=== PATIENT | female | born 1970 | race African-American/Black ===

== ENCOUNTER 2024-08-23 22:53 | Observation (INO) ==
[2024-08-23] MEDS: NITROGLYCERIN 0.4 MG TAB.SUBL SL ONE ×2 (23:31→23:36)
[2024-08-23 23:37] LABS: Basophils%(Percent) Auto 0.5 (0.1-0.85); Eosinophils#(Absolute)Auto 0.2 (0.0-0.2); Eosinophils%(Percent) Auto 2.4 % (0.4-2.8); Granulocytes % - Auto 65.6 % (47.8-71.3); Granulocytes#(Absolute)- Auto 5.7 (2.3-6.0); Hematocrit 36.5 % (35.9-46.7); Mean Corpuscular Volume 93.5 fl (81.0-93.7); Monocytes #(Absolute)- Auto 0.8 (1.1-3.1); Monocytes %(Percent)- Auto 9.2 % (3.6-9.8); Platelet Count 234 K/uL (152-353); White Blood Count 8.8 K/uL (4.3-9.3)
[2024-08-24 00:30] LABS: Potassium 3.8 mmol/L (3.6-5.2)
[2024-08-24] MEDS ORDERED: ONDANSETRON HCL/PF 4 MG/2 ML VIAL INJ PRN (01:19)
[2024-08-24] MEDS ORDERED: MAGNESIUM, ALUMINUM HYDROXIDE 30 ML ORAL.SUSP PO PRN (01:19)
[2024-08-24] MEDS ORDERED: MAGNESIUM HYDROXIDE 400 MG/5 ML ORAL.SUSP PO PRN (01:19)
[2024-08-24] MEDS ORDERED: ACETAMINOPHEN 500 MG TABLET PO PRN (01:19)
[2024-08-24] MEDS ORDERED: DOCUSATE SODIUM 100 MG CAPSULE PO PRN (01:19)
--- NOTE | 2024-08-24 01:28 | Emergency Department Note ---
HPI - Chest Pain General Chief Complaint: Chest Pain Stated Complaint: CHEST PAIN Time Seen by Provider: 08/23/24 23:47 Source: patient and EMS Mode of arrival: ambulance Limitations: no limitations History of Present Illness HPI narrative: 54-year-old Afro-[place]ese female presents to the ED alert and oriented x 4, nontoxic-appearing, in moderate severe painful distress. Patient arrives via EMS with a chief complaint of acute onset of left anterior/sternal chest pain that radiates into her shoulder and left arm. Patient further states she slotted for cardiac cath on as she had a previous blockage that will now require stent placement. Patient currently denies any acute shortness of breath, respiratory distress, or increased work of breathing. Patient localized the pain to the left anterior breast area, described as sharp, stabbing in nature with nothing improving the pain or relieving it. The pain does radiate into the left shoulder girdle and down into the left arm. Patient placed immediately on the relief master, and was administered ASA by EMS enroute. MD complaint: Reports chest pain, chest heaviness and chest discomfort Pertinent past history: Reports coronary artery disease Prior episodes: Yes Onset: Reports during exertion Pain location: Reports substernal and left chest Pain radiation: Reports left arm and left shoulder Severity: moderate Related Data On Oral Contraceptives: No Allergies Allergy/AdvReac Type Severity Reaction Status Date / Time lisinopril Allergy Verified 08/23/24 23:33 Review of Systems Status of ROS 10 or more systems reviewed and unremark able except as noted in history and below Cardiovascular Reports: chest pain Exam Exam: 54 yo AA female well developed, a/ox4, n on toxic appearing in moderate to severe painful distress. Patient is currently clutching her sternal area stating she is experiencing a sudden onset of acute chest pain. Constitutional: alert Vital Signs - 24 hr 08/23/24 23:00 08/23/24 23:31 08/23/24 23:36 Temperature 98.4 F Pulse Rate 88 Respiratory Rate 28 H Blood Pressure 179/106 160/101 179/106 Pulse Oximetry 99 Oxygen Delivery Me thod Nasal Cannula 08/23/24 23:41 08/23/24 23:43 08/23/24 23:45 Temperature Pulse Rate Respiratory Rate Blood Pressure 150/95 136/87 Pulse Oximetry 100 Oxygen Delivery Me thod Room Air 08/24/24 00:00 08/24/24 00:51 Temperature 98.4 F 98.4 F Pulse Rate 90 84 Respiratory Rate 16 16 Blood Pressure 136/87 130/84 Pulse Oximetry 100 100 Oxygen Delivery Me thod Room Air Room Air HENMT: normocephalic, head/scalp atraumatic and hearing grossly normal bilaterally Eyes: PERRL and EOMs intact bilaterally Neck/C-Spine: visual inspection normal Lymph: no lymphadenopathy noted Chest: inspection of chest normal Respiratory: breath sounds equal bilaterally, normal respiratory effort, clear to auscultation bilaterally, no wheezes, no rales and no retractions Cardiovascular: normal heart rate noted, regular rhythm noted, no gallop, no rub, no murmur, no JVD and no additional abnormal heart sounds Gastrointestinal: abdomen normal to inspection and abdomen soft to palpation Genitourinary: no CVA tenderness Back/Pelvis: spine normal to inspection Extremities: normal to inspection Neurology: no movement abnormality noted Psychiatry: Mental Status Exam documented in the separate MSE mental status grossly normal Feel stressed/tense/nervous/anxious/difficulty sleeping: not at all Due to disability, difficulty making decisions: No Skin: skin color normal Course Course Hospital Course: Full cardiac workup to include EKG, labs, IV, telemonitoring, repeat CE, SubLin Nitro Reevaluation(s) Reevaluation #1: Patient states patient is competely gone after the third nitro dose Time: 23:00 Reevaluation #2: I have discussed my desire to admit the patient to the hosptial for obs and repe at cardiac enzymes. Time: 00:30 Vital Signs Vital signs: Vital Signs Temperature 98.4 F 08/23/24 23:00 Pulse Rate 88 08/23/24 23:00 Respiratory Rate 28 H 08/23/24 23:00 Blood Pressure 179/106 08/23/24 23:00 Pulse Oximetry 99 08/23/24 23:00 Oxygen Delivery Method Nasal Cannula 08/23/24 23:00 Temperature 98.4 F 08/24/24 00:51 Pulse Rate 84 08/24/24 00:51 Respiratory Rate 16 08/24/24 00:51 Blood Pressure 130/84 08/24/24 00:51 Pulse Oximetry 100 08/24/24 00:51 Oxygen Delivery Method Room Air 08/24/24 00:51 MDM - Chest Pain MDM Narrative Medical decision making narrative: History physical and laboratory exams are consistent with acute chest wall pain, however due to the patient's cardiac nature and insurance she is slotted for cardiac cath on would like to admit the patient for rule out cardiac enzymes and further telemonitoring.Patient's cardiac workup is largely benign at this time, nitro has eliminated patient's chest wall pain while maintaining normal vital signs Differential Diagnosis Differential diagnosis: Likely stable angina, unstable angina pectoris, atypical chest pain, st elevation myocardial infarction and other (PE, NSTEMI) Medical Records Data Attestation: I reviewed the patient's medical records. Lab Data Attestation: I reviewed the patient's lab results. Labs: Lab Results 08/23/24 Range/Units 23:25 WBC 8.8 (4.3-9.3) K/uL RBC 3.9 L (4.00-5.50) M/uL Hgb 12.2 L (12.5-15.8) gm/dL Hct 36.5 (35.9-46.7) % MCV 93.5 (81.0-93.7) fl MCH 31.2 (27.6-32.2) pg MCHC 33.3 (33.1-35.3) g/dl RDW 13.7 (11.4-14.2) % Plt Count 234 (152-353) K/uL MPV 7.2 (6.9-10.8) fl Gran % 65.6 (47.8-71.3) % Lymph % (Auto) 22.3 (20.0-43.0) % [place] % (Auto) 9.2 (3.6-9.8) % Eos % (Auto) 2.4 (0.4-2.8) % Baso % (Auto) 0.5 (0.1-0.85) Lymph # (Auto) 2.0 (1.1-3.1) [place] # (Auto) 0.8 L (1.1-3.1) Eos # (Auto) 0.2 (0.0-0.2) Baso # (Auto) 0.0 (0.0-0.1) Absolute Gran (auto) 5.7 (2.3-6.0) Sodium 139 (136-145) mmol/L Potassium 3.8 (3.6-5.2) mmol/L Chloride 105.0 (98-107) mmol/L Carbon Dioxide 28 (21-32) mmol/L Anion Gap 6.0 (4-14) mEq/L BUN 25 H (7-18) mg/dL Creatinine 1.6 H (0.6-1.3) mg/dL Estimated GFR 38.1 (>59.9) Glucose 155 H (70-110) mg/dL Calcium 9.1 (8.5-10.1) mg/dL Total Bilirubin 0.50 (0.0-1.0) mg/dL AST 20 (15-37) U/L ALT 32 (30-65) U/L Alkaline Phosphatase 106 (50-136) U/L Troponin I High Sens 7.00 (4.0-60.4) ng/L Total Protein 6.7 (6.4-8.2) g/dL Albumin 2.9 L (3.4-5.0) g/dL Imaging Data Imaging ordered: Chest x-ray Attestation: I personally reviewed and interpreted this imaging study as follows: My impression: No acute findings present ECG Data Attestation: I personally reviewed and interpreted this ECG as follows: ECG interpretation date: 08/23/24 ECG interpretation time: 23:10 Prior ECG tracings: not available for review Interpretation: Sinus rhythm normal normal P axis ventricular rate of 69 at atrial premature complexes SB complex with short RR interval left ventricular ventricular hypertrophy multiple verbal speech criteria Rate 76 RR 792 CA 152 QRSD 84 QT 388 Core Measures AMI core measures followed: Yes Critical Care Time Critical Care Time Total Critical Care Time: 90 Discharge Plan Discharge Patient Disposition: Admitted As Observation Clinical Impression: Atypical chest pain Time of Disposition: 01:27 [facility] Medical History FHx: cholecystectomy Hypertension Diabetes Chronic back pain History of COVID-19 Pulmonary embolism Social History Smoking status: never smoker Within the past year, how often did you have a drink containing alcohol: monthly or less Non-prescribed substance use: cannabis (any form) Non-prescribed substance use details: Pt admits to occassional use of Marijuana What is your current living situation: I presently have a place to live Problems where you live: no known problems Feel stressed/tense/nervous/anxious/difficulty sleeping: not at all Due to disability, difficulty making decisions: No
[2024-08-24 07:58] VITALS: RESP 19
[2024-08-24] MEDS: HYDROCODONE/ACETAMINOPHEN 7.5/325MG TABLET PO PRN (08:14)
[2024-08-24] MEDS: ASPIRIN 325 MG TABLET PO SCH (09:25)
[2024-08-24] MEDS: ENOXAPARIN SODIUM 40 MG/0.4 ML SYRINGE SUBQ SCH (09:26)
[2024-08-24] MEDS: 0.9 % SODIUM CHLORIDE 1000 ML 1,000 ML IV SCH (09:26)
[2024-08-24] MEDS: LABETALOL HCL 100 MG TABLET PO SCH (09:26)
[2024-08-24] MEDS: PANTOPRAZOLE SODIUM 40 MG TABLET.DR PO SCH (09:26)
[2024-08-24] MEDS: FAMOTIDINE 20 MG TABLET PO SCH (09:26)
[2024-08-24] MEDS: 0.9 % SODIUM CHLORIDE 500 ML IV ONE ×2 (09:42→09:43)
[2024-08-24] MEDS ORDERED: 0.9 % SODIUM CHLORIDE 1000 ML 1,000 ML IV SCH (10:00)
[2024-08-24] MEDS: AMLODIPINE BESYLATE 5 MG TABLET PO SCH (12:01)
[2024-08-24] MEDS: APIXABAN 2.5 MG TABLET PO SCH (12:01)
[2024-08-24] MEDS: ATORVASTATIN CALCIUM 40 MG TABLET PO SCH (12:01)
--- NOTE | 2024-08-24 15:22 | Short Stay Summary ---
H&P: HPI History of Present Illness Chief complaint: CHEST PAIN Narrative: 54-year-old Afro-[place] female presents to the ED alert and oriented x 4, nontoxic-appearing, in moderate severe painful distress. Patient arrives via EMS with a chief complaint of acute onset of left anterior/sternal chest pain that radiates into her shoulder and left arm. Patient further states she slotted for cardiac cath on 08/28/2024 Dr Catherine as she had a previous blockage that will now require stent placement. Patient currently denies any acute shortness of breath, respiratory distress, or increased work of breathing. Patient localized the pain to the left anterior breast area, described as sharp, stabbing in nature with nothing improving the pain or relieving it. The pain does radiate into the left shoulder girdle and down into the left arm. Patient placed immediately on the inside parts sales, and was administered ASA by EMS in route. Patient was given nitro x 2 in the ER and that resolved the chest pain without any reoccurrence noted per the patient. Review of Systems Status of ROS 10 or more systems reviewed and unremark able except as noted in history and below Constitutional Reports: malaise; Denies: fever, chills, change in weight, fatigue or change in sleep pattern Eyes Denies: change in vision, blurry vision, blind spots or light sensitivity Ears, nose, mouth, and throat Denies: throat pain, neck pain, throat swelling, difficulty swallowing or hoarseness Cardiovascular Reports: chest pain and swelling of feet/ankles; Denies: palpitations, edema, shortness of breath with exertion or shortness of breath when lying down Respiratory Denies: shortness of breath, cough, wheezing, stridor or pain on inspiration Gastrointestinal Reports: feeling full early; Denies: abdominal pain, nausea, vomiting, coffee grounds in vomit, heartburn, diarrhea, constipation or difficulty swallowing Genitourinary Denies: painful urination, urinary frequency, urinary urgency, urinary incontinence, blood in urine or difficulty voiding Musculoskeletal Reports: back pain (chronic); Denies: neck pain, extremity pain, extremity swelling, joint pain or limited range of motion Integumentary/Breast Denies: rash, itching, redness, skin pain, skin tenderness, skin swelling, sores or new lesion Neurological Denies: headache, numbness in extremities, weakness in extremities, lack of coordination or dizziness Psychiatric Denies: anxiety, mood swings, panic attacks, change in sleep pattern, hopelessness or loss of interest Endocrine Denies: excessive urination, excessive thirst, fatigue, cold intolerance or excessive sweating Hematologic/Lymphatic Denies: easy bruising, easy bleeding or enlarged lymph nodes Allergic/Immunologic Denies: hives, throat swelling, tongue swelling, facial swelling, wheezing, itchy eyes or seasonal allergies PFSH PFSH Medical History (Updated 08/24/24 @ 15:48 by Leila Jackson DO) Presence of stent in coronary artery in patient with coronary artery disease Morbid obesity GERD with esophagitis FHx: cholecystectomy Hypertension Diabetes Chronic back pain History of COVID-19 Pulmonary embolism Social History Smoking status: never smoker Within the past year, how often did you have a drink containing alcohol: monthly or less Non-prescribed substance use: cannabis (any form) Non-prescribed substance use details: Pt admits to occassional use of Marijuana What is your current living situation: I presently have a place to live Problems where you live: no known problems Highest level of school completed/degree received: high school Feel stressed/tense/nervous/anxious/difficulty sleeping: decline to answer Life stressors: other (chest pain) Life stressor details: chest pain and concerns over her health Due to disability, difficulty making decisions: No Meds Home Medications and Allergies Home Medications Medication Instructions Recorded Confirmed Type alcohol swabs (Alcohol Pads) 1 pad topical DAILY 08/24/24 08/24/24 History amlodipine 5 mg tablet 5 mg PO DAILY 08/24/24 08/24/24 History apixaban 5 mg tablet (Eliquis) 5 mg PO Q12H 08/24/24 08/24/24 History aspirin 81 mg chewable tablet 81 mg PO DAILY cad #30 tabs 08/24/24 Rx atorvastatin 40 mg tablet 40 mg PO DAILY 08/24/24 08/24/24 History blood sugar diagnostic (OneTouch 08/24/24 08/24/24 History Ultra Test strips) blood-glucose meter (OneTouch 08/24/24 08/24/24 History Ultra2 Meter) hydrocodone 7.5 mg-acetaminophen 1 tab PO Q12H PRN pain 08/24/24 08/24/24 History 325 mg tablet labetalol 200 mg tablet 200 mg PO Q12H 08/24/24 08/24/24 History lancets 28 gauge (Safety Lancets) 08/24/24 08/24/24 History olmesartan 40 mg tablet 40 mg PO DAILY 08/24/24 08/24/24 History Allergies Allergy/AdvReac Type Severity Reaction Status Date / Time lisinopril Allergy Verified 08/23/24 23:33 Exam Exam: 54 yo AA female well developed, a/ox4, n on toxic appearing in moderate to severe painful distress. Patient is currently clutching her sternal area stating she is experiencing a sudden onset of acute chest pain. Constitutional: abnormal general appearance (chronically ill), no apparent distress, abnormal body habitus (obese), no limitations and alert Vital Signs - 24 hr 08/23/24 23:00 08/23/24 23:31 08/23/24 23:36 Temperature 98.4 F Pulse Rate 88 Pulse Rate [Left C arotid] Respiratory Rate 28 H Blood Pressure 179/106 160/101 179/106 Blood Pressure [Ri ght Arm] Pulse Oximetry 99 Oxygen Delivery Me thod Nasal Cannula 08/23/24 23:41 08/23/24 23:43 08/23/24 23:45 Temperature Pulse Rate Pulse Rate [Left C arotid] Respiratory Rate Blood Pressure 150/95 136/87 Blood Pressure [Ri ght Arm] Pulse Oximetry 100 Oxygen Delivery Me thod Room Air 08/24/24 00:00 08/24/24 00:51 08/24/24 02:00 Temperature 98.4 F 98.4 F 98.4 F Pulse Rate 90 84 84 Pulse Rate [Left C arotid] Respiratory Rate 16 16 16 Blood Pressure 136/87 130/84 130/84 Blood Pressure [Ri ght Arm] Pulse Oximetry 100 100 100 Oxygen Delivery Me thod Room Air Room Air Room Air 08/24/24 02:00 08/24/24 02:20 08/24/24 04:10 Temperature 98.4 F 98.6 F 98.1 F Pulse Rate 84 Pulse Rate [Left C arotid] Respiratory Rate 16 18 18 Blood Pressure 130/84 Blood Pressure [Ri ght Arm] 150/90 132/77 Pulse Oximetry 100 95 97 Oxygen Delivery Me thod Room Air Room Air 08/24/24 07:50 08/24/24 12:00 Temperature 97.8 F 98.5 F Pulse Rate Pulse Rate [Left C arotid] 88 80 Respiratory Rate 19 19 Blood Pressure Blood Pressure [Ri ght Arm] 139/78 137/83 Pulse Oximetry 93 L 98 Oxygen Delivery Me thod Room Air Room Air HENMT: normocephalic, head/scalp atraumatic, hearing grossly normal bilaterally and external ears normal Eyes: PERRL, EOMs intact bilaterally, conjunctivae normal, no scleral icterus, papilledema noted, alignment normal and periorbital findings normal Neck/C-Spine: visual inspection normal, trachea midline, cervical spine nontender, cervical full ROM noted, supple, no meningeal signs, thyroid normal and no carotid bruits Lymph: no lymphadenopathy noted and no lymphedema noted Chest: inspection of chest normal and palpation of chest normal Respiratory: breath sounds equal bilaterally, normal respiratory effort, clear to auscultation bilaterally, no wheezes, no rales and no retractions Cardiovascular: normal heart rate noted, regular rhythm noted, no gallop, no rub, no murmur, no JVD, no clicks, peripheral pulses 2+ throughout and no bruits noted Gastrointestinal: abdomen normal to inspection, abdomen soft to palpation, nontender to palpation, nondistended, normoactive bowel sounds, hepatosplenomegaly noted, no masses, no pulsatile mass, no ascites and no hernia Genitourinary: no CVA tenderness and bladder normal to palpation Back/Pelvis: spine abnormal to inspection, no thoracic spine tenderness, lumbar spine tenderness noted, thoracic spine ROM normal, lumbar spine ROM abnormal and paraspinal muscle tenderness noted Extremities: normal to palpation, no tenderness and full ROM Neurology: senior investigator II-XII intact, no movement abnormality noted, no focal motor deficit noted, sensory deficit noted, deep tendon reflexes 2+ bilaterally, gait normal, speech normal and coordination normal Psychiatry: Mental Status Exam documented in the separate MSE mental status grossly normal, oriented x3, thought process normal, cooperative, affect normal, psychomotor activity normal and memory normal Feel stressed/tense/nervous/anxious/difficulty sleeping: decline to answer Life stressors: other (chest pain) Due to disability, difficulty making decisions: No Skin: skin color normal, no rash, no lesions, no ecchymosis noted, no wounds, no lacerations, skin turgor normal, no jaundice, no petechiae, no mottling and nails abnormality noted Assessment and Plan Assessment and Plan (1) Unstable angina: Code(s): I20.0 - Unstable angina (2) Acute renal injury: Code(s): N17.9 - Acute kidney failure, unspecified (3) Acute dehydration: Code(s): E86.0 - Dehydration (4) GERD with esophagitis: Qualifiers: Esophagitis bleeding: without hemorrhage Qualified Code(s): K21.00 - Gastro-esophageal reflux disease with esophagitis, without bleeding Code(s): K21.00 - Gastro-esophageal reflux disease with esophagitis, without bleeding (5) Morbid obesity: Code(s): E66.01 - Morbid (severe) obesity due to excess calories (6) Diabetes: Qualifiers: Diabetes mellitus complication detail: with other circulatory complications Diabetes mellitus complication status: with circulatory complication Diabetes mellitus intermediate insulin use: with termite helper use Diabetes mellitus type: type 2 Qualified Code(s): E11.59 - Type 2 diabetes mellitus with other circulatory complications; Z79.4 - long term care administrator (current) use of insulin Code(s): E11.9 - Type 2 diabetes mellitus without complications (7) Hypertension: Qualifiers: Hypertension type: primary hypertension Qualified Code(s): I10 - Essential (primary) hypertension Code(s): I10 - Essential (primary) hypertension (8) Presence of stent in coronary artery in patient with coronary artery disease: Code(s): I25.10 - Atherosclerotic heart disease of [place] coronary artery without angina pectoris; Z95.5 - Presence of coronary angioplasty implant and graft Plan 0.9% normal saline at 500 mL bolus then 200/h for 1 more bag Nitro sublingual 0.41 p.o. every 5 minutes x 3 as needed chest pain Not tried to place 1 inch to anterior chest wall every 6 hours Aspirin 81 mg 1 p.o. every day Hold patient's weekly Ozempic Continue amlodipine 5 mg p.o. daily Eliquis 5 mg p.o. every 12 hours Atorvastatin 40 mg p.o. daily Labetalol 10 mg 1 p.o. every 12 hours Olmesartan 40 mg p.o. daily held as not on Formulary and patient does not have it [id number] blood glucose monitoring every AC and at bedtime + scale insulin per protocol Results Labs Labs: CBC 08/23/24 Range/Units 23:25 WBC 8.8 (4.3-9.3) K/uL RBC 3.9 L (4.00-5.50) M/uL Hgb 12.2 L (12.5-15.8) gm/dL Hct 36.5 (35.9-46.7) % Plt Count 234 (152-353) K/uL Gran % 65.6 (47.8-71.3) % Lymph % (Auto) 22.3 (20.0-43.0) % [place] % (Auto) 9.2 (3.6-9.8) % Eos % (Auto) 2.4 (0.4-2.8) % Baso % (Auto) 0.5 (0.1-0.85) Lymph # (Auto) 2.0 (1.1-3.1) [place] # (Auto) 0.8 L (1.1-3.1) Eos # (Auto) 0.2 (0.0-0.2) Baso # (Auto) 0.0 (0.0-0.1) Absolute Gran (auto) 5.7 (2.3-6.0) CMP 08/23/24 08/24/24 23:25 04:00 Sodium 139 139 Potassium 3.8 4.0 Chloride 105.0 105.0 Carbon Dioxide 28 27 BUN 25 H 27 H Creatinine 1.6 H 1.7 H Glucose 155 H 132 H Calcium 9.1 9.2 Liver Function 08/23/24 08/24/24 Range/Units 23:25 04:00 Total Bilirubin 0.50 0.40 (0.0-1.0) mg/dL AST 20 18 (15-37) U/L ALT 32 33 (30-65) U/L Alkaline Phosphatase 106 99 (50-136) U/L Albumin 2.9 L 3.0 L (3.4-5.0) g/dL Pulse Oximetry Attestation: I have reviewed the pertinent pulse oximetry results. ECG Attestation: I have reviewed the pertinent ECG results. Prior ECG tracings: available for review Imaging Imaging ordered: Chest x-ray Radiologist's impression: COMPARISON: 01/05/2024. TECHNICAL QUALITY: Satisfactory. FINDINGS: Normal size heart. Mediastinum and hilar regions show no masses or lymphadenopathy. Normal central vascularity. No pulmonary consolidation, masses, pleural fluid, or pneumothorax. No acute bony abnormality. IMPRESSION: No evidence of active cardiopulmonary disease. DS: Providers Provider Date of admission: 08/24/24 01:19 Primary care physician: Rene Thibodeaux MD Admitting clinician: Mehrdad Sexton Attending physician on admission: Leila Jackson Attending physician on discharge: Leila Jackson Discharging clinician: Leila Jackson Anticipated date of discharge: 08/24/24 DS: Summary Hospital Course Hospital Course: Full cardiac workup to include EKG, labs, IV, telemonitoring, repeat CE, SubLin Nitro Status at Discharge Functional status at discharge: independent ambulation Overall status at discharge: patient is back to baseline Time Spent with Patient Time attestation: Total time spent providing and/or coordinating discharge services: Time spent: greater than 30 minutes Discharge Plan Discharge Disposition: Home, Self-Care Condition: Improved Discharge Medications: New aspirin 81 mg tablet,chewable 81 mg PO DAILY Qty: 30 0RF Continued hydrocodone-acetaminophen 7.5-325 mg tablet 1 tab PO Q12H PRN (Reason: pain) atorvastatin 40 mg tablet 40 mg PO DAILY labetalol 200 mg tablet 200 mg PO Q12H olmesartan 40 mg tablet 40 mg PO DAILY Eliquis 5 mg tablet 5 mg PO Q12H amlodipine 5 mg tablet 5 mg PO DAILY (DME) blood-glucose meter [OneTouch Ultra2 Meter] [facility] [place] MISCELLANEOUS Patient Comments: USE DIRECTED (DME) OneTouch Ultra Test Strip MISCELLANEOUS Patient Comments: TEST ONCE DAILY alcohol swabs [Alcohol Pads] Pads, Medicated 1 pad TOPICAL DAILY Patient Comments: TEST ONCE DAILY (DME) lancets [Safety Lancets] 28 gauge [facility] [place] MISCELLANEOUS Patient Comments: TEST ONCE DAILY Discontinued Ozempic 2 mg/dose (8 mg/3 mL) pen injector 2 mg SUBCUT QWEEK Patient Comments: inject 0.75 ml subcutaneously once a week Discharge Orders: Discharge Order (Routine); Ordered 08/24/24 Ordered By: Leila Jackson Activity: increase activity as tolerated Diet: diabetic diet and low fat, low cholesterol Activity Restrictions/Additional Instructions: Keep appoint with Dr. Catherine on the 18 for Cardiac cath and then bridge direction start at least 6 days a week 30 minutes total of cardiovascular exercise. Follow-up PCP with them Saturday or Saturday as appointment available If chest pain reoccurs or she is return to the ER [facility] for further evaluation and testing Patient states she needs to increase her water intake and no further Ozempic until she is cleared by cardiology and PCP to resume as it may be contributing to her current chest pain and dehydration and renal injury due to inadequate oral intake Forms: Portal/Health Info Access Inst Follow-Ups: Rene Thibodeaux MD [Primary Care Provider] -
[2024-08-24 16:35] LABS: Potassium 4.8 mmol/L (3.6-5.2)
[2024-08-24 16:40] VITALS: BP 144/84; PULSE 89; TEMP 98.6
== END 2024-08-24 16:46 | disposition home or self-care (01) ==
LOC: MS 22:53 → ED 22:53 → MS 08-24 02:29
PROVIDERS: ADMIT Nurse Practitioner Family; ATTEND Family Medicine